=== PATIENT | male | born 1995 | race Caucasian/White ===

== ENCOUNTER 2016-04-28 13:26 | Emergency (ER) | payer BC ==
[~2016-04-28] VITALS: Ht 182.9 cm; Wt 91.8 kg
[2016-04-28 13:41] VITALS: TEMP 36.6; Ht 182.9 cm; Wt 91.8 kg
[2016-04-28 14:27] LABS: BASO % 0.2 %; BASO ABS # 0.02 K/uL (0-0.2); COMPLETE YES; EOS % 0.8 %; HEMATOCRIT 38.8 % (42-52); IG% 0.2 %; LYMPH % 12.7 %; LYMPH ABS # 1.11 K/uL (1.2-3.4); MEAN CELL VOLUME 81.5 fL (80-100); MEAN CORPUSCULAR HEMOGLOBIN 29.6 pg (25-34); MEAN CORPUSCULAR HGB CONC 36.3 g/dl (32-36); MEAN PLATELET VOLUME 8.7 fL (7.4-10.4); MONO % 9.3 %; NEUT % 76.8 %; PLATELET COUNT 213 K/uL (130-400); RED BLOOD COUNT 4.76 M/uL (4.7-6.1); WHITE BLOOD COUNT 8.72 K/uL (4.8-10.8)
[2016-04-28] MEDS ORDERED: SODIUM CHLORIDE 0.9% 1000ML 2,000 ML IV STA (14:40)
[2016-04-28 14:48] LABS: BUN/CREATININE RATIO 8.9 (10-20); CALCIUM 8.5 mg/dl (8.5-10.1); CREATININE 0.9 mg/dl (0.60-1.40); POTASSIUM 4.7 mmol/L (3.5-5.1)
[2016-04-28 14:50] LABS: ALB/GLOB RATIO 1.4 (0.9-2)
[2016-04-28] MEDS ORDERED: EFF75 PO (15:51)
[2016-04-28] MEDS ORDERED: IBUP-1050 PO (15:52)
[2016-04-28 15:53] VITALS: BP 156/88; PULSE 87; O2SAT 97
--- NOTE | 2016-04-28 20:32 | EMERGENCY ROOM VISIT NOTE ---
History Report prepared by Kennaibe: Jasmine Vela Under the Supervision of: Dr. Des Upton M.D. First contact with patient: 14:40 Chief Complaint: ILLNESS Stated Complaint: DEHYDRATION History of Present Illness The patient is a 20 year old male who presents to the Emergency Room with complaints of a possible panic attack that occurred earlier today. He was dancing at the [employer] [facility] [employer] [place] this weekend when the attack started and reports he has not slept in over 2 days. The patient states he started to feel "very confused" during the attack and "out of it". He admits he has experienced panic attacks in the past, with the last panic attack being when he was in High School. He does currently take Effexor for his anxiety. The patient denies any recent illnesses or cold symptoms. The patient denies LOC, headache, fevers, chills, diaphoresis, visual changes, neck pain, chest pain, breathing difficulties, nausea, vomiting, abdominal pain, back pain, melena, hematochezia , urinary symptoms, numbness, weakness, lymphadenopathy, rash, or other complaints. Source of History: patient Onset: [employer] Position: other (global) Timing: resolved Modifying Factors (Worsening): other (lack of sleep) Review of Systems See HPI for pertinent positives and negatives. A total of ten systems were reviewed and were otherwise negative. Past Medical & Surgical Medical Problems: (1) History of panic attacks Social History Smoking Status: Never Smoker Smokeless Tobacco Use: No Alcohol Use: occasionally Drug Use: none Marital Status: single Housing Status: lives with roommate Occupation Status: [employer] student Current/Historical Medications Scheduled Ibuprofen (Advil), 200 MG PO Q6 Venlafaxine Hcl (Effexor), 75 MG PO DAILY Allergies Coded Allergies: No Known Allergies (Unverified , 04/28/16) Physical Exam Vital Signs Date Time Temp Pulse Resp B/P Pulse Ox O2 Delivery O2 Flow Rate FiO2 04/28/16 15:53 87 18 156/88 97 Room Air 04/28/16 13:52 55 04/28/16 13:41 36.6 61 18 161/97 99 Room Air Physical Exam GENERAL: Awake, alert, tired-appearing, in no distress HENT: Normocephalic, atraumatic. Oropharynx unremarkable. EYES: Normal conjunctiva. Sclera non-icteric. NECK: Supple. No nuchal rigidity. FROM. No JVD. RESPIRATORY: Clear to auscultation. CARDIAC: Borderline tachycardic heart rate, normal rhythm. Extremities warm and well perfused. Pulses equal. ABDOMEN: Soft, non-distended. No tenderness to palpation. No rebound or guarding. No masses. RECTAL: Deferred. MUSCULOSKELETAL: Chest examination reveals no tenderness. The back is symmetrical on inspection without obvious abnormality. There is no CVA tenderness to palpation. No joint edema. LOWER EXTREMITIES: Calves are equal size bilaterally and non-tender. No edema. No discoloration. NEURO: Normal sensorium. No sensory or motor deficits noted. SKIN: No rash or jaundice noted. Medical Decision & Procedures Laboratory Results 04/28/16 14:15 Red Blood Count 4.76, Mean Corpuscular Volume 81.5, Mean Corpuscular Hemoglobin 29.6, Mean Corpuscular Hemoglobin Concent 36.3, Mean Platelet Volume 8.7, Neutrophils (%) (Auto) 76.8, Lymphocytes (%) (Auto) 12.7, Monocytes (%) (Auto) 9.3, Eosinophils (%) (Auto) 0.8, Basophils (%) (Auto) 0.2, Neutrophils # (Auto) 6.69, Lymphocytes # (Auto) 1.11, Monocytes # (Auto) 0.81, Eosinophils # (Auto) 0.07, Basophils # (Auto) 0.02 04/28/16 14:15 Test 04/28/16 14:15 White Blood Count 8.72 K/uL (4.8-10.8) Red Blood Count 4.76 M/uL (4.7-6.1) Hemoglobin 14.1 g/dL (14.0-18.0) Hematocrit 38.8 % (42-52) Mean Corpuscular Volume 81.5 fL (80-100) Mean Corpuscular Hemoglobin 29.6 pg (25-34) Mean Corpuscular Hemoglobin Concent 36.3 g/dl (32-36) Platelet Count 213 K/uL (130-400) Mean Platelet Volume 8.7 fL (7.4-10.4) Neutrophils (%) (Auto) 76.8 % Lymphocytes (%) (Auto) 12.7 % Monocytes (%) (Auto) 9.3 % Eosinophils (%) (Auto) 0.8 % Basophils (%) (Auto) 0.2 % Neutrophils # (Auto) 6.69 K/uL (1.4-6.5) Lymphocytes # (Auto) 1.11 K/uL (1.2-3.4) Monocytes # (Auto) 0.81 K/uL (0.11-0.59) Eosinophils # (Auto) 0.07 K/uL (0-0.5) Basophils # (Auto) 0.02 K/uL (0-0.2) RDW Standard Deviation 36.4 fL (36.4-46.3) RDW Coefficient of Variation 12.3 % (11.5-14.5) Immature Granulocyte % (Auto) 0.2 % Immature Granulocyte # (Auto) 0.02 K/uL (0.00-0.02) Anion Gap 9.0 mmol/L (3-11) Est Creatinine Clear Calc Drug Dose 142.5 ml/min Estimated GFR () 141.0 Estimated GFR (Non- 121.7 BUN/Creatinine Ratio 8.9 (10-20) Calcium Level 8.5 mg/dl (8.5-10.1) Total Bilirubin 1.1 mg/dl (0.2-1) Aspartate Amino Transf (AST/SGOT) 38 U/L (15-37) Alanine Aminotransferase (ALT/SGPT) 34 U/L (12-78) Alkaline Phosphatase 72 U/L (45-117) Total Protein 7.3 gm/dl (6.4-8.2) Albumin 4.3 gm/dl (3.4-5.0) Globulin 3.0 gm/dl (2.5-4.0) Albumin/Globulin Ratio 1.4 (0.9-2) Laboratory results reviewed by me Medications Administered Medications (Trade) Dose Ordered Sig/Ellen Route Start Time Stop Time Status Last Admin Dose Admin Sodium Chloride (Nss 1000ml) 2,000 ml @ 999 mls/hr Q2H1M STAT IV 04/28/16 14:40 04/28/16 16:40 DC 04/28/16 14:58 999 MLS/HR ED Course 1440: NSS 2000 ml @ 999 mls/hr IV. 1446: The patient was evaluated in room A12A. A complete history and physical exam was performed. 1600: I reevaluated the patient. He is feeling well and his Mother has shown up. I discussed his results and discharge instructions and he verbalized complete understanding and agreement. Medical Decision Triage Nursing notes reviewed. The patient's presentation and history were concerning for confusion and fatigue. Etiologies such as metabolic, infection, hypo/hyperglycemia, electrolyte abnormalities, cardiac sources, intracerebral event, toxicologic, neurologic, as well as others were entertained. The patient was evaluated. He was severely fatigued and he was confused. He had some nausea and vomiting. He was hydrated and his symptoms improved dramatically. He was able to rest. A CBC, chemistry panel and LFTs were unremarkable. After hydration and rest the patient's mother presented to the Emergency Room. He was back to normal. He was acting appropriately. He was no longer confused. I believe that the patient has suffering from severe fatigue and exhaustion due [place] the [place]. He does have a history of panic disorder. I instructed him to rest and get plenty of sleep. He should have an outpatient checkup after resting. If any problems occur he should come back to the emergency department for reevaluation. By the evaluation outlined above other emergent etiologies such as those listed in the differential, as well as others, were deemed relatively unlikely. The patient and mother were informed about the findings as listed above. All questions were answered and they were pleased with the treatment. Return instructions were outlined and the patient was discharged in stable condition. The patient was referred to his PCP for follow-up this week for a recheck of the current condition. The chart was completed utilizing [employer] Speech voice recognition software. Grammatical errors, random word insertions, pronoun errors, and incomplete sentences are an occasional consequence of this system due to software limitations, ambient noise, and hardware issues. Any formal questions or concerns about the content, text, or information contained within the body of this dictation should be directly addressed to the physician for clarification. Impression Primary Impression: Exhaustion delirium Additional Impressions: Confusion Panic attack Scribe Attestation The scribe's documentation has been prepared under my direction and personally reviewed by me in its entirety. I confirm that the note above accurately reflects all work, treatment, procedures, and medical decision making performed by me. Departure Information Dispostion Home / Self-Care Patient Instructions My [facility] Additional Instructions Rest and drink plenty of fluids as tolerated. Continue current medications. Resume normal activities once your symptoms resolve. Eat a heart healthy, low fat, low cholesterol diet. Return to the ER immediately for passing out, chest pain, abdominal pain, vomiting, fevers, difficulty breathing, worsening of your condition, or as needed. Follow up with your primary physician in 2-3 days for a recheck of your current condition. Problem Qualifiers
== END 2016-04-28 16:20 | disposition home or self-care (01) ==
LOC: C.EDA 13:26
DX: F43.0 Acute stress reaction (principal); R41.0 Disorientation, unspecified; F41.0 Panic disorder [episodic paroxysmal anxiety]; Z79.899 Other long term (current) drug therapy